=== PATIENT | male | born 1980 | race Caucasian/White ===

== ENCOUNTER 2019-12-27 02:40 | Emergency (ER) | payer BC, SELFPAY ==
[2019-12-27 02:53] VITALS: BP 145/101; PULSE 45; RESP 20; O2SAT 100; BMI 28.8
--- NOTE | 2019-12-27 02:58 | CTR_ITS ---
PROCEDURE INFORMATION: Exam: CT Abdomen And Pelvis Without Contrast Exam date and time: 12/27/2019 3:01 AM Age: 39 years old Clinical indication: Abdominal pain; Left; Prior surgery; Surgery type: Vasectomy; Patient HX: PT CO pain lt flank radiating to lt testicle; Additional info: Flank/abdominal pain TECHNIQUE: Imaging protocol: Computed tomography of the abdomen and pelvis without contrast. Radiation optimization: All CT scans at this facility use at least one of these dose optimization techniques: automated exposure control; mA and/or kV adjustment per patient size (includes targeted exams where dose is matched to clinical indication); or iterative reconstruction. COMPARISON: No relevant prior studies available. RADIATION DOSE METRICS: Total DLP (mGy-cm): 1392.56 FINDINGS: Lungs: There is a calcified granuloma in the right lower lobe. Liver: The liver is normal. Gallbladder and bile ducts: The gallbladder is normal. There is no biliary dilation. Pancreas: The pancreas is unremarkable. Spleen: The spleen is unremarkable. Adrenals: The adrenal glands are unremarkable. Kidneys and ureters: Mild left hydronephrosis and hydroureter to the level of the ureterovesical junction where there is a 4 x 3 x 2 mm stone within the ureteral lumen. There is mild periureteral edema. Minimal perinephric edema and renal enlargement. No intrarenal stones. Normal right kidney. Stomach and bowel: The stomach is unremarkable. The small bowel is nondilated. There is mild sigmoid colonic diverticulosis without evidence of diverticulitis. Appendix: The appendix is normal. Intraperitoneal space: There is no free air or significant intraperitoneal free fluid. Vasculature: The aorta is unremarkable. There is no aneurysm. Lymph nodes: There is no lymphadenopathy in the retroperitoneum, mesentery, pelvis or inguinal regions. Urinary bladder: The urinary bladder is unremarkable. Reproductive: The prostate and seminal vesicles are unremarkable. Bones/joints: Bones are unremarkable. Soft tissues: The abdominal wall is intact. CT/CT kidney stone [id number] IMPRESSION: 4 mm stone in the distal left ureter producing mild hydronephrosis. No intrarenal stones. Radiation Dose CTDIVOL = (mGy): DLP = 1392.56 (mGy-cm)
--- NOTE | 2019-12-27 02:59 | ECG_ITS ---
[facility] Test Date: 2019-12-27 Pat Name: Jessica Akhtar Department: Room: Gender: Male Smocker: : 1980 Requested By: Gypsy Chen Order Number: [id number] Woods MD: Kiersten Guerrier M.D. Measurements Intervals [place] Rate: 46 P: 42 NE: 135 QRS: 43 QRSD: 113 T: 44 QT: 450 QTc: 397 Interpretive Statements SINUS BRADYCARDIA WITH SINUS ARRHYTHMIA INDETERMINATE AXIS INCOMPLETE RIGHT BUNDLE BRANCH BLOCK [90+ ms QRS DURATION, TERMINAL R IN V1/V2, 40+ ms S IN I/aVL/V4/V5/V6] No previous ECG available for comparison Electronically Signed On 12-27-2019 21:35:00 CDT by Kiersten Guerrier M.D. [id number] f
--- NOTE | 2019-12-27 03:00 | W.ED.ABDPA2 ---
HPI - Abdominal Pain General: Chief Complaint: Abdominal Pain Stated Complaint: lower left back/abd pain Time Seen by Provider: 12/27/19 02:54 Source: patient Mode of arrival: ambulatory Limitations: no limitations History of Present Illness: HPI narrative: Mr. Akhtar is a nice 39-year-old male who comes in complaining of left-sided flank pain. He states the pain awoke him from sleep at 1:30 AM. The pain goes from his back around to his abdomen into his groin. He denies any similar symptoms to this in the past. He has associated nausea but no vomiting. Denies any blood in his urine. He denies any diarrhea or constipation. Patient denies having anything similar to this in the past. He otherwise denies headache, chest pain, shortness of breath, extremity pain or fever. Associated Symptoms: Reports nausea; Denies chills, coffee ground emesis, constipation, GI cramping, diarrhea, dysuria, fever(s), heartburn, hematochezia, hematuria, hematemesis, melena, syncope and vomiting Review of Systems Const: Denies: fever(s), chills, body aches, fatigue, malaise or diaphoresis Eyes: Denies: change in vision, blurry vision, photophobia, eye discomfort, eye discharge, eye redness or yellow eyes ENMT: Denies: throat pain, odynophagia, hoarseness, swelling of lips/tongue, ear or mastoid pain, ear discharge, change in hearing or nasal discharge Card: Denies: chest pain, palpitations, irregular heart rhythm, edema, lightheadedness, syncope, pre-syncope, dyspnea on exertion or orthopnea Resp: Denies: dyspnea, productive cough, non-productive cough, wheezing, hemoptysis or chest congestion GI: Reports: abdominal pain and nausea; Denies: vomiting, hematemesis, coffee ground emesis, heartburn, diarrhea, constipation, GI cramping, hematochezia or melena : Denies: flank pain, dysuria, urinary frequency, urinary urgency or hematuria Musc: Denies: neck pain, back pain, extremity pain, extremity swelling, joint pain, joint swelling, joint redness, joint warmth or joint stiffness Skin/Breast: Denies: rash, pruritus, erythema, skin pain or skin tenderness Neuro: Denies: headache(s), numbness in extremities, weakness in extremities, sensory changes, lack of coordination, difficulty walking, dizziness, vertigo, confusion, Slurred speech present or seizure-like activity Evan/Lymph: Denies: easy bruising, easy bleeding, petechiae, purpura or enlarged lymph nodes All/Imm: Denies: urticaria, throat swelling, tongue swelling, facial swelling or acute wheezing PFSH ED PFSH: Medical History Hyperlipidemia Hypertension Physical Exam Const: COMMON NORMALS: no acute distress, patient oriented x3, no limitations and alert GENERAL APPEARANCE: cooperative HENMT: COMMON NORMALS: normocephalic, atraumatic, external ears normal, EAC's normal and Normal external nose present HEAD & SCALP: normal to inspection, normocephalic and atraumatic FACE & SINUS: normal facial exam and face symmetric NOSE: Normal external nose present and Normal nares present EXTERNAL EAR: Yes external ears normal EXTERNAL AUDITORY CANAL: EAC's normal MOUTH: Normal oral and palatal mucosa present, lip normal and tongue normal Eye: COMMON NORMALS: Equal, round and reactive pupils present and conjunctivae normal GENERAL EYE: appearance normal, both eyes and all related structures ALIGNMENT: Yes alignment normal PERIORBITAL: periorbital findings normal EYELID: eyelids normal CONJUNCTIVA: Yes conjunctivae normal SCLERA: sclerae normal PUPIL: Yes Equal, round and reactive pupils present Neck/C-Spine: COMMON NORMALS: full ROM, no lymphadenopathy, supple, no meningeal signs and no JVD GENERAL: Yes normal visual inspection and Yes trachea midline Chest: COMMONS NORMALS: normal inspection of the chest and normal palpation of entire chest wall Resp: COMMON NORMALS: normal respiratory effort, No retractions, No use of accessory muscles and clear to auscultation bilaterally EFFORT & INSPECTION: Yes able to speak in complete sentences and Yes symmetric chest movement AUSCULTATION: clear to auscultation bilaterally, no crackles, no rales, no rhonchi and no wheezes Cardio: COMMON NORMALS: no JVD, regular rate, regular rhythm, S1 normal heart sound present and S2 normal heart sound present RATE: regular rate RHYTHM: regular rhythm HEART SOUNDS: S1 normal heart sound present, S2 normal heart sound present, no click, no gallops, no murmurs and no rubs GI: COMMON NORMALS: Soft to palpation and No hepatosplenomegaly present PALPATION: Yes Soft to palpation, No Tenderness to palpation present (GI), No Guarding due to palpation present (GI), No Rigid due to palpation, Yes No hepatosplenomegaly present, No Hernia present, No Palpable mass present and No Pulsatile mass present : BLADDER/KIDNEY EXAM: Yes CVA tenderness on the left Back/Pelvis: COMMON NORMALS: thoracic and lumbar spine normal to inspection, no thoracic nor lumbar tenderness and thoraco-lumbar ROM normal GENERAL BACK: Yes CVA tenderness Extremity: COMMON NORMALS: normal to inspection, full ROM, capillary refill normal, no joint enlargement, no clubbing, cyanosis or edema and no calf tenderness Neuro: COMMON NORMALS: patient oriented x3, CN's II-XII intact bilaterally, moves all extremities, no focal motor deficits and no sensory deficits noted SENSORIUM/ORIENTATION: Yes alert MENINGEAL SIGNS: Yes no meningeal signs SPEECH: speech normal Psych: COMMON NORMALS: mental status grossly normal, Normal thought process present, cooperative, normal affect, speech normal and activity/motor behavior normal SPEECH: Yes normal speech THOUGHT PROCESS: Normal thought process present Skin: COMMON NORMALS: no rashes or lesions noted, turgor normal, no jaundice, no petechiae and no mottling GENERAL SKIN EXAM: no rashes or lesions noted and turgor normal Course Vital Signs: Vital signs: Vital Signs Pulse Rate 48 L 12/27/19 04:05 Respiratory Rate 16 12/27/19 04:05 Blood Pressure 132/76 12/27/19 04:05 Pulse Oximetry 96 12/27/19 04:05 MDM - Abdominal Pain MDM Narrative: Medical decision making narrative: The patient is feeling tremendously better at this time. I reviewed the case in full including laboratory findings with Dr. Montanez. He agrees to see the patient the next 1 to 2 days in follow-up. Patient has no fever or significant white count to suggest a UTI. He has white cells but no leukocyte esterase or nitrites and he denies dysuria. Patient has been bradycardic amezquita here but he has no chest pain or shortness of breath and his blood pressure is stable. He states this is a typical finding for him. Patient understands return here for fever, vomiting or uncontrolled pain but at this time he is feeling better and would like to be discharged. Lab Data: Attestation: I reviewed the patient's lab results. Labs: Lab Results 12/27/19 12/27/19 12/27/19 Range/Units 03:06 03:06 03:06 WBC 11.0 H (4.0-10.0) 10^3/ uL RBC 5.37 H (4.1-5.3) 10^6/u L Hgb 15.5 (11.7-16.6) g/dL Hct 44.4 (42.0-52.0) % MCV 82.7 (80-94) fL MCH 28.9 (28.0-34.0) pg MCHC 34.9 (30.0-36.0) g/dL RDW 12.0 L (12.1-15.1) % Plt Count 378 (130-400) 10^3/c mm MPV 8.9 (7.4-10.4) fL Neut % (Auto) 62.5 % Lymph % (Auto) 29.6 % [place] % (Auto) 6.1 % Eos % (Auto) 1.0 % Baso % (Auto) 0.5 % Neut # (Auto) 6.88 (1.8-7.7) 10^3/u L Lymph # (Auto) 3.3 (0.8-4.8) 10^3/u L [place] # (Auto) 0.7 (0.2-0.9) 10^3/u L Eos # (Auto) 0.1 (0.0-0.8) 10^3/u L Baso # (Auto) 0.1 (0.0-0.1) 10^3/u L Nucleated RBC % (a uto) 0 % Nucleated RBCs # 0.0 /100WBC Sodium 140 (136-145) mmol/L Potassium 3.7 (3.5-5.1) mmol/L Chloride 99 (98-107) mmol/L Carbon Dioxide 26 (22-29) mmol/L Anion Gap 18.7 (5-19) BUN 15 (6-20) mg/dL Creatinine 1.1 (0.7-1.2) mg/dL GFR Calculation 74.5 L (90-130) mL/min Glucose 212 H (65-115) mg/dL Calculated Osmolal ity 297 H (285-295) mOsm/k g Calcium 10.0 (8.5-10.5) mg/dL Total Bilirubin 0.5 (0.15-1.2) mg/dL AST 24 (0-40) U/L ALT 44 H (0-41) U/L Alkaline Phosphata se 136 H (40-130) IU/L Troponin T Baselin e 6 (0-15) ng/L Total Protein 7.1 (6.6-8.7) g/dL Albumin 4.8 (3.5-5.2) g/dL Globulin 2.3 (1.3-4.6) g/dL Lipase 27 (13-60) U/L Urine Color (Yellow) Urine Appearance (CLEAR) Urine pH (5-7) Ur Specific Gravit y (1.005-1.030) Urine Protein (Negative) Urine Glucose (UA) (Normal) Urine Ketones (Negative) Urine Blood (Negative) Urine Nitrate (Negative) Urine Bilirubin (Negative) Urine Urobilinogen (Negative) mg/dL Ur Leukocyte Gissell ase (Negative) Urine RBC (0-2) /hpf Urine WBC (0-5) /hpf Ur Squamous Epith Cells (0-5) /hpf Calcium Oxalate Cr ystal /hpf Amorphous Sediment Urine Bacteria (NONE) /hpf 12/27/19 Range/Units 04:05 WBC (4.0-10.0) 10^3/ uL RBC (4.1-5.3) 10^6/u L Hgb (11.7-16.6) g/dL Hct (42.0-52.0) % MCV (80-94) fL MCH (28.0-34.0) pg MCHC (30.0-36.0) g/dL RDW (12.1-15.1) % Plt Count (130-400) 10^3/c mm MPV (7.4-10.4) fL Neut % (Auto) % Lymph % (Auto) % [place] % (Auto) % Eos % (Auto) % Baso % (Auto) % Neut # (Auto) (1.8-7.7) 10^3/u L Lymph # (Auto) (0.8-4.8) 10^3/u L [place] # (Auto) (0.2-0.9) 10^3/u L Eos # (Auto) (0.0-0.8) 10^3/u L Baso # (Auto) (0.0-0.1) 10^3/u L Nucleated RBC % (a uto) % Nucleated RBCs # /100WBC Sodium (136-145) mmol/L Potassium (3.5-5.1) mmol/L Chloride (98-107) mmol/L Carbon Dioxide (22-29) mmol/L Anion Gap (5-19) BUN (6-20) mg/dL Creatinine (0.7-1.2) mg/dL GFR Calculation (90-130) mL/min Glucose (65-115) mg/dL Calculated Osmolal ity (285-295) mOsm/k g Calcium (8.5-10.5) mg/dL Total Bilirubin (0.15-1.2) mg/dL AST (0-40) U/L ALT (0-41) U/L Alkaline Phosphata se (40-130) IU/L Troponin T Baselin e (0-15) ng/L Total Protein (6.6-8.7) g/dL Albumin (3.5-5.2) g/dL Globulin (1.3-4.6) g/dL Lipase (13-60) U/L Urine Color Yellow (Yellow) Urine Appearance Cloudy (CLEAR) Urine pH 5 (5-7) Ur Specific Gravit y 1.030 (1.005-1.030) Urine Protein Trace (Negative) Urine Glucose (UA) Norm (Normal) Urine Ketones 1+ H (Negative) Urine Blood 3+ H (Negative) Urine Nitrate Negative (Negative) Urine Bilirubin Neg (Negative) Urine Urobilinogen 1 H (Negative) mg/dL Ur Leukocyte Gissell ase Negative (Negative) Urine RBC >100 H (0-2) /hpf Urine WBC 10-15 H (0-5) /hpf Ur Squamous Epith Cells 0-4 H (0-5) /hpf Calcium Oxalate Cr ystal Rare /hpf Amorphous Sediment Not Reportable Urine Bacteria 1+ H (NONE) /hpf Imaging Data ^: CT Abd/Pel: Radiologist's impression: [address] [place] [address] CT Scan Report Signed Patient: Jessica Akhtar Unit #: [id number] : 1980 Age/Sex: 39 / M ADM Date: 12/27/19 Loc: ER Room/Bed: Attending Dr: Ordering Provider/Ordering MD: Gypsy Ramirez DO Date of Service: 12/27/19 Procedure(s): CT kidney stone [id number] Accession Number(s): [id number] Report Number: [id number] PROCEDURE INFORMATION: Exam: CT Abdomen And Pelvis Without Contrast Exam date and time: 12/27/2019 3:01 AM Age: 39 years old Clinical indication: Abdominal pain; Left; Prior surgery; Surgery type: Vasectomy; Patient HX: PT CO pain lt flank radiating to lt testicle; Additional info: Flank/abdominal pain TECHNIQUE: Imaging protocol: Computed tomography of the abdomen and pelvis without contrast. Radiation optimization: All CT scans at this facility use at least one of these dose optimization techniques: automated exposure control; mA and/or kV adjustment per patient size (includes targeted exams where dose is matched to clinical indication); or iterative reconstruction. COMPARISON: No relevant prior studies available. RADIATION DOSE METRICS: Total DLP (mGy-cm): 1392.56 FINDINGS: Lungs: There is a calcified granuloma in the right lower lobe. Liver: The liver is normal. Gallbladder and bile ducts: The gallbladder is normal. There is no biliary dilation. Pancreas: The pancreas is unremarkable. Spleen: The spleen is unremarkable. Adrenals: The adrenal glands are unremarkable. Kidneys and ureters: Mild left hydronephrosis and hydroureter to the level of the ureterovesical junction where there is a 4 x 3 x 2 mm stone within the ureteral lumen. There is mild periureteral edema. Minimal perinephric edema and renal enlargement. No intrarenal stones. Normal right kidney. Stomach and bowel: The stomach is unremarkable. The small bowel is nondilated. There is mild sigmoid colonic diverticulosis without evidence of diverticulitis. Appendix: The appendix is normal. Intraperitoneal space: There is no free air or significant intraperitoneal free fluid. Vasculature: The aorta is unremarkable. There is no aneurysm. Lymph nodes: There is no lymphadenopathy in the retroperitoneum, mesentery, pelvis or inguinal regions. Urinary bladder: The urinary bladder is unremarkable. Reproductive: The prostate and seminal vesicles are unremarkable. Bones/joints: Bones are unremarkable. Soft tissues: The abdominal wall is intact. CT/CT kidney stone [id number] IMPRESSION: 4 mm stone in the distal left ureter producing mild hydronephrosis. No intrarenal stones. Radiation Dose CTDIVOL = (mGy): DLP = 1392.56 (mGy-cm) Dictated By: Tony Almaguer MD Signed By: Tony Almaguer MD Signed Date/Time: 12/27/19403 DD/ 2 EKG Data ^: EKG 1: Attestation: I personally reviewed and interpreted this EKG as follows: EKG interpretation date: 12/27/19 EKG interpretation time: 03:00 Interpretation: Normal sinus rhythm with a ventricular rate of 46 beats a minute, incomplete right bundle branch block, normal axis, wandering baseline artifact, nonspecific ST and T wave changes. EKG 2: Attestation: I personally reviewed and interpreted this EKG as follows: EKG interpretation date: 12/27/19 EKG interpretation time: 04:33 Interpretation: Sinus bradycardia with sinus arrhythmia at 51 beats a minute, normal axis, normal intervals, incomplete right bundle branch block, no acute ST-T wave changes. Discharge Plan Discharge Patient Disposition: Home Clinical Impression: Calculus, ureteral Condition: Stable Prescriptions: New Macrobid 100 mg capsule 100 mg PO BID 7 Days Qty: 14 RF: 0 Zofran 4 mg tablet 4 mg PO Q6H PRN (Reason: nausea and vomiting) Qty: 20 RF: 0 Percocet 5-325 mg tablet 1 tab PO Q6H PRN (Reason: pain) Qty: 20 RF: 0 Discharge Orders: Discharge Order (Routine); Ordered 12/27/19 Ordered By: Gypsy Ramirez Referrals: Oni Montanez MD [Physician] - 1-3 days Discharge Diet: Advance as tolerated Discharge Activity: Increase activity as tolerated Patient Instructions: Kidney Stones (ED), Renal Colic (ED), How to Strain Your Urine (ED) Activity Restrictions/Additional Instructions: Please return to the ER immediately for any of the signs or symptoms listed on your discharge instruction sheets, worsening/changing of your symptoms, you are not getting better as quickly as expected, or for ANY other cause or concerns. Take your medications as I have prescribed them. Return to the ER for increased pain, fever, vomiting, or for any other cause for concern. Be certain to call today for an appointment to be seen by Dr. Montanez in the next 1 to 2 days. Coding Level of Care Code ED Clinical Reviewer for Chg Fwd Exam Comprehensive
[2019-12-27] MEDS: morphine 4 mg/mL SDV 1 mL IVP (03:01)
[2019-12-27] MEDS: sodium chloride 0.9% 1,000 ML 999 ML IV ×2 (03:17→03:57)
[2019-12-27] MEDS: HYDROmorphone 1 mg/mL INJ 1 mL 0.5 MG IVP ×2 (03:17→03:56)
[2019-12-27] MEDS: ondansetron 2 mg/ML SDV 2 mL 4 MG IVP (03:17)
[2019-12-27 03:36] LABS: Basophils # 0.1 10^3/uL (0.0-0.1); Basophils % 0.5 %; Eosinophils # 0.1 10^3/uL (0.0-0.8); Hematocrit 44.4 % (42.0-52.0); Hemoglobin 15.5 g/dL (11.7-16.6); Lymphocytes # 3.3 10^3/uL (0.8-4.8); Lymphocytes % 29.6 %; Mean Corpuscular HGB Conc 34.9 g/dL (30.0-36.0); Mean Corpuscular Hemoglobin 28.9 pg (28.0-34.0); Mean Corpuscular Volume 82.7 fL (80-94); Mean Platelet Volume 8.9 fL (7.4-10.4); Monocytes # 0.7 10^3/uL (0.2-0.9); Monocytes % 6.1 %; Neutrophils # 6.88 10^3/uL (1.8-7.7); Neutrophils % 62.5 %; Nucleated Red Blood Cells % 0 %; Platelet Count 378 10^3/cmm (130-400); Red Blood Count 5.37 10^6/uL (4.1-5.3)
[2019-12-27 03:46] LABS: Alanine Aminotransferase 44 U/L (0-41); Albumin Level 4.8 g/dL (3.5-5.2); Alkaline Phosphatase 136 IU/L (40-130); Anion Gap 18.7 (5-19); Aspartate Amino Transferase 24 U/L (0-40); Blood Urea Nitrogen 15 mg/dL (6-20); Carbon Dioxide 26 mmol/L (22-29); Chloride 99 mmol/L (98-107); Globulin 2.3 g/dL (1.3-4.6); Glomerular Filtration Rate 74.5 mL/min (90-130); Glucose 212 mg/dL (65-115); Lipase 27 U/L (13-60); Osmolality Calculated 297 mOsm/kg (285-295); Potassium 3.7 mmol/L (3.5-5.1); Sodium 140 mmol/L (136-145); Total Bilirubin 0.5 mg/dL (0.15-1.2); Total Protein 7.1 g/dL (6.6-8.7)
[2019-12-27 03:48] LABS: Troponin(5th) Baseline 6 ng/L (0-15)
[2019-12-27 04:05] VITALS: BP 132/76; PULSE 48; RESP 16; O2SAT 96
[2019-12-27 04:45] LABS: Bacteria Urine 1+ /hpf; Bilirubin Urine Neg (Negative); Blood Urine 3+ (Negative); Calcium Oxalate Crystals Urine RARE /hpf; Glucose Urine UA Norm (Normal); Ketones Urine 1+ (Negative); Leukocyte Esterase Urine Negative (Negative); Nitrate Urine Negative (Negative); Protein Urine Trace (Negative); RBC Urine >100 /hpf (0-2); Squamous Epithelial Cell Urine 0-4 /hpf (0-5); Urine Appearance Cloudy (CLEAR); Urine Color Yellow (Yellow); Urobilinogen Urine 1 mg/dL (Negative); pH Urine 5 (5-7)
[2019-12-27 04:46] LABS: Add Urine Culture? Yes
[2019-12-27] MEDS: cefTRIAXone 1,000 MG in sodium chloride 0.9% (plus) 50 ML 100 MG IV (05:04)
[2019-12-27] MEDS: ketorolac 30 mg/mL INJ 15 MG IVP (05:35)
[2019-12-27 05:36] VITALS: BP 123/87; PULSE 57; RESP 18; O2SAT 99
== END 2019-12-27 05:37 | disposition home or self-care (01) ==
PROVIDERS: Emergency Provider Emergency Medicine
DX: N20.1 Calculus of ureter (principal); E78.5 Hyperlipidemia, unspecified; I10 Essential (primary) hypertension
CPT/HCPCS: 12345; 74176; 80053; 81001; 83690; 84484; 85025; 87086; 93005; 96361; 96365; 96375; 96376; 99283; 99284; J0131; J0696; J1170; J1885; J2270; J2405; J7030

== ENCOUNTER 2019-12-28 10:07 | Outpatient (CLI) | payer BC, SELFPAY ==
--- NOTE | 2019-12-28 10:00 | XR_ITS ---
WS: [id number] KUB, 12/28/2019 Clinical Data: calculus Comparison: CT abdomen and pelvis, 12/27/2019 Findings: The distal 0.4 cm left ureterovesical junction calculus is probably in the same position. It has not yet passed into the bladder. The kidneys show no calcifications. There is moderate fecal material in the colon. XR/XR KUB [id number] Impression: Probable no change in left ureterovesical junction calculus.
== END 2019-12-28 10:08 | disposition home or self-care (01) ==
LOC: RAD 10:09
PROVIDERS: Visit Provider Urology
DX: N20.1 Calculus of ureter (principal)
CPT/HCPCS: 74018; 81001

== ENCOUNTER 2020-01-03 09:51 | Outpatient (CLI) | payer BC, SELFPAY ==
--- NOTE | 2020-01-03 09:45 | XR_ITS ---
WS: [id number] KUB, 01/03/2020 Clinical Data: URETERAL STONE Comparison: KUB, 12/28/2019. Findings: No abnormal intraabdominal masses or calcifications are seen. There is no dilatated small bowel or ev idence of obstruction. The calcification on the left side is true pelvis is not seen today. There is a phlebolith on the lef t side of the true pelvis. XR/XR KUB [id number] Impression: Left ureteral vesicle junction calculus is not seen.
== END 2020-01-03 09:52 | disposition home or self-care (01) ==
LOC: RAD 09:52
PROVIDERS: Visit Provider Urology
DX: N20.1 Calculus of ureter (principal)
CPT/HCPCS: 74018; 81001; 82365; 88300